=== PATIENT | female | born 1980 | race Caucasian/White ===

== ENCOUNTER 2016-06-20 13:05 | Outpatient (CLI) | payer MEDICAID ==
[~2016-06-20] VITALS: Ht 157.5 cm; Wt 86.9 kg
[~2016-06-20 13:05] MED LIST: ACET325T33 PO; NITR-58 PO
[2016-06-20 13:36] VITALS: Ht 157.5 cm; Wt 86.9 kg
[2016-06-20] MEDS ORDERED: PRENAT PO (13:37)
[2016-06-20 14:01] LABS: ADD SCAN DIFF NO
[2016-06-20 14:06] LABS: BASOPHILS % 0.3 % (0.0-2.0); EOSINOPHILS % 0.3 % (0.0-7.0); HEMATOCRIT 37.6 % (37.0-47.0); HEMOGLOBIN 12.9 g/dl (12.0-16.0); LYMPHOCYTES # 1.3 10^3/ul (0.8-2.9); LYMPHOCYTES % 17.5 % (15.0-51.0); MEAN CORPUSCULAR HEMOGLOBIN 31.8 pg (29.0-33.0); MEAN CORPUSCULAR HGB CONC 34.3 g/dl (32.0-37.0); MEAN CORPUSCULAR VOLUME 92.6 fl (82.0-101.0); MONOCYTE # 0.4 10^3/ul (0.3-0.9); MONOCYTES % 5.1 % (0.0-11.0); NEUTROPHIL # 5.7 10^3/ul (1.6-7.5); NEUTROPHILS % 76.3 % (39.0-77.0); PLATELET COUNT 262 10^3/UL (140-415); RED BLOOD COUNT 4.06 10^6/ul (4.20-5.40); RED CELL DISTRIBUTION WIDTH 13.2 % (11.5-14.5); WHITE BLOOD COUNT 7.5 10^3/ul (4.8-10.8)
[2016-06-20 14:08] LABS: ADD UMIC YES; URINE BILIRUBIN (Dip) NEGATIVE (NEGATIVE); URINE BLOOD (Dip) TRACE (NEGATIVE); URINE COLOR LT. YELLOW (YELLOW); URINE GLUCOSE (Dip) NEGATIVE (NEGATIVE); URINE KETONES (Dip) NEGATIVE (NEGATIVE); URINE LEUKOCYTE ESTERASE (Dip) TRACE (NEGATIVE); URINE NITRITE (Dip) NEGATIVE (NEGATIVE); URINE TOTAL PROTEIN (Dip) TRACE (NEGATIVE); URINE UROBILINOGEN (Dip) 0.2 E.U./dL (0.1-1.0)
[2016-06-20 14:18] LABS: INR 0.91; PARTIAL THROMBOPLASTIN TIME 24.7 Sec (25.0-35.0); PROTIME 12.3 Sec (12.2-14.2)
[2016-06-20 14:20] LABS: ALBUMIN 3.5 g/dl (3.3-4.9)
[2016-06-20 14:21] LABS: POTASSIUM 3.9 mmol/L (3.5-5.1)
[2016-06-20 14:23] LABS: ALBUMIN/GLOBULIN RATIO 0.97; CREATININE 0.48 mg/dl (0.44-1.00); TOTAL PROTEIN 7.1 g/dl (6.1-8.1)
[2016-06-20 14:24] LABS: CALCIUM 9.8 mg/dl (8.4-10.2); URIC ACID 4.5 mg/dl (3.1-7.9)
--- NOTE | 2016-06-20 14:33 | RADRPT ---
PROCEDURE: US biophysical profile. CLINICAL INDICATION: induced hypertension. TECHNIQUE: Multiple sonographic images of the uterus were obtained. The images were revi ewed on a PACS workstation. COMPARISON: No prior studies are available for comparison. FINDINGS: There is a single live intrauterine gestation. heart rate is 125 beats per minute. The position is cephalic. The placenta is anterior right grade II with no abruption or previa. The SEE is 9.7 cm. (Normal = 5-20 cm.) Breathing Movement: 2 Gross Body Movement: 2 Tone: 2 Qualitative Amniotic Fluid Volume: 2 TOTAL: 8 IMPRESSION: 1. The biophysical score is 8/8. RPTAT: QQ .Garett Zimmerman MD, MD Date Time Electronically viewed and signed by .Garett Zimmerman MD, on 06/20/2016 14:32 .R/
[2016-06-20 15:02] LABS: BACTERIA,URINE FEW; URINE RBCS 0-2 /HPF (0)
--- NOTE | 2016-06-20 15:46 | QN ---
Documentation Comment 38 y/o female admitted for Audu=ible decelerations in the clinic at 37.4 weeks on EFM , NSR; R BRR : 11/22 All labs and bps are stable ERI LUDWIG MD Jun 20, 2016 15:45
--- NOTE | 2016-06-20 15:48 | PD.PPDC ---
[employer] Discharge Instruction Provider Information Physician Information admitted for audible deceleration in the clinic Diagnosis Final Diagnosis: Normal and reactive FHTs Condition Patient Condition: Good Diet Diet: Resume Regular Diet Activity/Restrictions Activity: Normal Activity May Shower Restrictions: Nothing in the Vagina Follow-up Follow-up with Physician: 3, 4, Day/Days (in clinic) ERI LUDWIG MD Jun 20, 2016 15:48
== END 2016-06-20 16:15 | disposition home health service (06) ==
LOC: OBT 13:05 → L-D 13:10 → OBT 16:15
PROVIDERS: ATTEND Obstetrics & Gynecology
DX: O09.513 Supervision of elderly primigravida, third trimester (principal); Z3A.37 37 weeks gestation of pregnancy
CPT/HCPCS: 36415; 76818; 80053; 81001; 84560; 85025; 85384; 85610; 85730; Z7500; 81003; G0463

== ENCOUNTER 2016-06-27 12:57 | Inpatient (IN) | payer MEDICAID ==
[~2016-06-27] VITALS: Ht 162.6 cm; Wt 85.9 kg
[~2016-06-27 12:57] MED LIST changes: -ACET325T33 PO; -NITR-58 PO; +PRENAT PO
[2016-06-27] MEDS ORDERED: FOL8 PO (13:20)
[2016-06-27] MEDS ORDERED: FERR240T9 PO (13:21)
[2016-06-27] MEDS ORDERED: CALC600T11 PO (13:21)
[2016-06-27] MEDS ORDERED: FERR236T PO (13:21)
[2016-06-27 13:30] VITALS: BP 137/97; PULSE 99; RESP 18
--- NOTE | 2016-06-27 14:25 | RADRPT ---
PROCEDURE: US OB biophysical profile. CLINICAL INDICATION: Preeclampsia. Assess biophysical profile and amniotic fluid index. TECHNIQUE: Multiple sonographic images of the pelvis were obtained. The images were reviewed on a PACS workstation. COMPARISON: Pelvic OB sonogram 06/20/2016. FINDINGS: Cardiac activity is present with 133.9 beats per minute. There is a vertex presentation. The placenta is grade 2 left lateral. Amniotic fluid index: 9.64 cm Biophysical profile: movement 2/2 tone 2/2. breathing 2/2 SEE 2/2 Total 11/22 IMPRESSION: 1. Amniotic fluid index equals 9.64 cm. 2. Normal biophysical profile. RPTAT:AAJJ . Physician Benjamin Date Time Electronically viewed and signed by Esteban Matta Physician on 06/27/2016 14:25 /
[2016-06-27 14:37] LABS: ADD UMIC YES; URINE BILIRUBIN (Dip) NEGATIVE (NEGATIVE); URINE BLOOD (Dip) TRACE (NEGATIVE); URINE COLOR LT. YELLOW (YELLOW); URINE GLUCOSE (Dip) NEGATIVE (NEGATIVE); URINE KETONES (Dip) NEGATIVE (NEGATIVE); URINE LEUKOCYTE ESTERASE (Dip) TRACE (NEGATIVE); URINE NITRITE (Dip) NEGATIVE (NEGATIVE); URINE TOTAL PROTEIN (Dip) NEGATIVE (NEGATIVE); URINE UROBILINOGEN (Dip) 0.2 E.U./dL (0.1-1.0)
[2016-06-27 14:52] LABS: BACTERIA,URINE FEW; URINE RBCS 0-2 /HPF (0)
[2016-06-27 16:01] LABS: ADD SCAN DIFF NO
[2016-06-27 16:03] LABS: BASOPHILS % 0.3 % (0.0-2.0); EOSINOPHILS % 0.4 % (0.0-7.0); HEMATOCRIT 38.5 % (37.0-47.0); HEMOGLOBIN 13.2 g/dl (12.0-16.0); LYMPHOCYTES # 1.4 10^3/ul (0.8-2.9); LYMPHOCYTES % 19.3 % (15.0-51.0); MEAN CORPUSCULAR HEMOGLOBIN 32.3 pg (29.0-33.0); MEAN CORPUSCULAR HGB CONC 34.3 g/dl (32.0-37.0); MEAN CORPUSCULAR VOLUME 94.1 fl (82.0-101.0); MONOCYTE # 0.4 10^3/ul (0.3-0.9); MONOCYTES % 5.3 % (0.0-11.0); NEUTROPHIL # 5.5 10^3/ul (1.6-7.5); NEUTROPHILS % 74.4 % (39.0-77.0); PLATELET COUNT 250 10^3/UL (140-415); RED BLOOD COUNT 4.09 10^6/ul (4.20-5.40); RED CELL DISTRIBUTION WIDTH 13.5 % (11.5-14.5); WHITE BLOOD COUNT 7.4 10^3/ul (4.8-10.8)
[2016-06-27 16:20] LABS: INR 0.89; PT RATIO 0.9
[2016-06-27 16:21] LABS: ALBUMIN 3.5 g/dl (3.3-4.9); PARTIAL THROMBOPLASTIN TIME 22.4 Sec (25.0-35.0)
[2016-06-27 16:22] LABS: POTASSIUM 4.3 mmol/L (3.5-5.1)
[2016-06-27 16:24] LABS: BILIRUBIN,INDIRECT 0.1 mg/dl (0-1.1); BILIRUBIN,TOTAL 0.1 mg/dl (0.2-1.3); CREATININE 0.51 mg/dl (0.44-1.00)
[2016-06-27 16:25] LABS: ALBUMIN/GLOBULIN RATIO 1.02; CALCIUM 9.9 mg/dl (8.4-10.2); TOTAL PROTEIN 6.9 g/dl (6.1-8.1); URIC ACID 4.3 mg/dl (3.1-7.9)
[2016-06-27] MEDS ORDERED: LACTATED RINGER'S 1,000 ML IV PRN (19:03)
[2016-06-27] MEDS ORDERED: MISOPROSTOL 200 MCG TAB PR PRN (19:30)
[2016-06-27] MEDS ORDERED: MINERAL OIL LIGHT 10 ML VIAL TOP ONE (19:30)
[2016-06-27] MEDS ORDERED: METHYLERGONOVINE 0.2 MG INJ IM PRN (19:30)
[2016-06-27] MEDS ORDERED: OXYTOCIN 30 UNITS/LR 500 ML IV PRN (19:30)
[2016-06-27] MEDS ORDERED: AMPICILLIN 2 GM/NS (PMX) 100 ML IV ONE (19:30)
[2016-06-27] MEDS ORDERED: LIDOCAINE 1% (MPF) 30 ML INJ INJ PRN (19:30)
[2016-06-27] MEDS ORDERED: OXYTOCIN 30 UNITS/LR 500 ML IV SCH ×2 (19:30)
[2016-06-27] MEDS ORDERED: IBUPROFEN 600 MG TAB PO PRN (19:30)
[2016-06-27] MEDS ORDERED: CARBOPROST 250 MCG INJ IM PRN (19:30)
[2016-06-27] MEDS ORDERED: BUTORPHANOL 2 MG INJ IV PRN (19:30)
[2016-06-27] MEDS: LACTATED RINGER'S 1,000 ML IV SCH (19:40)
[2016-06-27] MEDS ORDERED: DINOPROSTONE 10 MG VAG SUPP VAG ONE (21:00)
[2016-06-27] MEDS: AMPICILLIN 1 GM/NS (PMX) 50 ML IV SCH (23:59)
[2016-06-28] MEDS: AMPICILLIN 1 GM/NS (PMX) 50 ML IV SCH ×5 (03:56→20:15)
[2016-06-28] MEDS: LACTATED RINGER'S 1,000 ML IV SCH ×3 (04:03→19:37)
[2016-06-28] MEDS ORDERED: MAGNESIUM SULFATE 4 GM/100 ML 100 ML IVPB ONE (04:30)
[2016-06-28] MEDS: MAGNESIUM SULFATE 20 GM/500 ML 500 ML IV SCH ×2 (05:45→15:42)
--- NOTE | 2016-06-28 16:34 | HP ---
Date/Time of Note Date/Time of Note DATE: 06/28/16 TIME: 16:30 OB - History Hx of Present Free Text/Dictation admitted for induction of the labor because of PIH Chief Complaint: No C/O H/A B/V or E/P Last Menstrual Period: September 08, 2015 Estimated Due Date: Jul 05, 2016 : 1 Para: 0 Care: Good Care Obstetrical Complications: Gestational Hypertension Medical Complications: None Past Family/Social History * Past Medical, Surgical, Family and Obstetric Histories reviewed from chart. Blood Type: O+ Rubella: immune RPR/VDRL: Negative GBS Status: Negative HBsAG: Negative OB Admission Exam Vital Signs Vital Signs Vital Signs Date Time Temp Pulse Resp B/P Pulse Ox O2 Delivery O2 Flow Rate FiO2 06/27/16 13:30 98.2 99 18 137/97 100 Room Air Physical Exam HEENT: WNL Heart: Rhythm Normal Lungs: Clear, Equal Abdomen: WNL Extremities: Normal Reflexes: Normal Cervical Dilatation: None Effacement: 0% Station: -3 Membranes: Intact Heart Rate: 130's Accelerations: Accelerations Present Decelerations: No Decelerations Varibility: Marked Contractions on Admission: None Last 72 hours Lab Results CBC & BMP 06/27/16 15:35 Liver Function Test 06/27/16 15:35 Alanine Aminotransferase (ALT/SGPT) 30 Albumin 3.5 Alkaline Phosphatase 236 H Aspartate Amino Transf (AST/SGOT) 34 Direct Bilirubin 0.00 Total Protein 6.9 Magnesium Level Test 06/28/16 12:43 Magnesium Level 5.0 H OB Assessment/Plan Reason for admission: induction of labor Other Assessment: PIH at term Induction Method: per Misoprostol Protocol ERI LUDWIG MD Jun 28, 2016 16:34
--- NOTE | 2016-06-28 19:36 | PN ---
Date/Time of Note Date/Time of Note DATE: 06/28/16 TIME: 19:35 OB Subjective Subjective Subjective No major complaints No C/O H/A B/V or epigastric pain OB Objective Objective Objective VSS P/E: unchanged OB Assessment/Plan Reason for admission: induction of labor Other Assessment: PIH at term Induction Method: per Misoprostol Protocol ERI LUDWIG MD Jun 28, 2016 19:36
[2016-06-28] MEDS ORDERED: DINOPROSTONE 10 MG VAG SUPP VAG ONE (22:30)
[2016-06-29] MEDS: AMPICILLIN 1 GM/NS (PMX) 50 ML IV SCH ×5 (00:01→16:01)
[2016-06-29] MEDS: LACTATED RINGER'S 1,000 ML IV SCH ×2 (02:52→16:01)
[2016-06-29] MEDS ORDERED: FENTAnyl 2MCG/ML-ROPIV 0.2% 100 ML ONE (10:02)
[2016-06-29] MEDS ORDERED: NALOXONE (0.4 MG/ML) INJ IV PRN (10:30)
[2016-06-29] MEDS ORDERED: ONDANSETRON 4 MG INJ IV PRN (10:30)
[2016-06-29] MEDS ORDERED: EPHEDrine SULFATE 50 MG/5 ML SYG IV PRN (10:30)
[2016-06-29] MEDS ORDERED: FENTAnyl 2MCG/ML-ROPIV 0.2% 100 ML BAG EPI SCH (10:30)
[2016-06-29] MEDS ORDERED: OXYTOCIN 30 UNITS/LR 500 ML IV SCH (12:30)
[2016-06-29] MEDS ORDERED: ACCUCHECK XX SCH (14:00)
[2016-06-29] MEDS ORDERED: MINERAL OIL LIGHT 10 ML VIAL TOP ONE (18:00)
--- NOTE | 2016-06-29 20:17 | LDN ---
Date/Time of Note Date/Time of Note DATE: 06/29/16 TIME: 20:12 Delivery Summary of a viable over intact perineum Placenta Delivered: Spontaneously, Intact & Complete Perineum intact?: No Perineal laceration: 1 Perineal laceration repair: 2 X vaginal lacerations and 1st degree perineal laceration was repaired with 2 0Vicryl and 2 0 Chromic Anesthesia type: Epidural Estimated blood loss: 400 Sponge & Needle done & correct: Yes All needle counts correct: Yes Any foreign bodies felt in the: No Problems: Infant Delivery Information Sex Infant Sex: female Apgars 1 Minute: 9 5 Minute: 9 Suctioning Nose & mouth suctioned at anil: Yes Delee suction performed: No Umbilical Cord Umbilical cord with: 3 Vessels Cord presentations: no nuchal cord Cord Blood was obtained: Yes Mother & Baby Disposition Disposition Mom & Baby to Maternity; Good: Yes (mother and baby were recovered in good condition ) Mom transferred to: Other (maternity ) Baby to NICU: No ERI LUDWIG MD Jun 29, 2016 20:17
[2016-06-29] MEDS ORDERED: MISOPROSTOL 200 MCG TAB PR PRN (21:00)
[2016-06-29] MEDS ORDERED: WITCH HAZEL/GLYCERIN PAD PR PRN (21:00)
[2016-06-29] MEDS ORDERED: DIBUCAINE 1% 30 GM OINT PR PRN (21:00)
[2016-06-29] MEDS: MAGNESIUM HYDROXIDE 30ML CUP PO SCH (21:00)
[2016-06-29] MEDS ORDERED: ACETAMINOPHEN/CODEINE #3 TAB PO PRN ×2 (21:00)
[2016-06-29] MEDS ORDERED: BENZOCAINE 20% 56 ML SPRAY TOP PRN (21:00)
[2016-06-29] MEDS ORDERED: OXYTOCIN 30 UNITS/LR 500 ML IV PRN (21:00)
[2016-06-29] MEDS ORDERED: METHYLERGONOVINE 0.2 MG INJ IM PRN (21:00)
[2016-06-29] MEDS ORDERED: ZOLPIDEM 5 MG TAB PO PRN (21:00)
[2016-06-29] MEDS: SENNA/DOCUSATE NA (8.6MG/50MG) TAB PO SCH (21:00)
[2016-06-29] MEDS ORDERED: LANOLIN 7 GM TUBE TOP PRN (21:00)
[2016-06-29] MEDS ORDERED: CARBOPROST 250 MCG INJ IM PRN (21:00)
[2016-06-29] MEDS: MAGNESIUM SULFATE 20 GM/500 ML 500 ML IV SCH (21:03)
[2016-06-29 22:35] VITALS: BP 131/88; PULSE 85; RESP 18
[2016-06-29 23:00] VITALS: BP 131/87; PULSE 86; RESP 19
[2016-06-29] MEDS: CEPHALEXIN 500 MG CAP PO SCH (23:54)
[2016-06-29] MEDS: IBUPROFEN 600 MG TAB PO SCH (23:55)
[2016-06-30] VITALS (20 sets, daily range): BP systolic 112–135; BP diastolic 66–84; PULSE 75–103; RESP 18–20
[2016-06-30] MEDS: LACTATED RINGER'S 1,000 ML IV* SCH ×3 (01:01→10:25)
[2016-06-30] MEDS: CEPHALEXIN 500 MG CAP PO SCH ×4 (05:42→23:49)
[2016-06-30] MEDS: IBUPROFEN 600 MG TAB PO SCH ×4 (05:42→23:49)
[2016-06-30 08:00] LABS: ADD SCAN DIFF NO
[2016-06-30 08:02] LABS: BASOPHILS % 0.3 % (0.0-2.0); EOSINOPHILS % 0.4 % (0.0-7.0); HEMATOCRIT 33.1 % (37.0-47.0); LYMPHOCYTES # 1.7 10^3/ul (0.8-2.9); LYMPHOCYTES % 15.2 % (15.0-51.0); MEAN CORPUSCULAR HEMOGLOBIN 31.5 pg (29.0-33.0); MEAN CORPUSCULAR HGB CONC 33.2 g/dl (32.0-37.0); MEAN CORPUSCULAR VOLUME 94.8 fl (82.0-101.0); MONOCYTE # 0.8 10^3/ul (0.3-0.9); MONOCYTES % 7.4 % (0.0-11.0); NEUTROPHIL # 8.3 10^3/ul (1.6-7.5); NEUTROPHILS % 76.3 % (39.0-77.0); PLATELET COUNT 225 10^3/UL (140-415); RED BLOOD COUNT 3.49 10^6/ul (4.20-5.40); RED CELL DISTRIBUTION WIDTH 13.7 % (11.5-14.5); WHITE BLOOD COUNT 10.9 10^3/ul (4.8-10.8)
[2016-06-30] MEDS: SENNA/DOCUSATE NA (8.6MG/50MG) TAB PO SCH ×2 (09:19→20:57)
[2016-06-30] MEDS: MAGNESIUM HYDROXIDE 30ML CUP PO SCH ×2 (09:19→20:57)
[2016-06-30] MEDS: MAGNESIUM SULFATE 20 GM/500 ML 500 ML IV SCH (14:33)
--- NOTE | 2016-06-30 18:28 | DS ---
Date/Time of Note Date/Time of Note DATE: 06/30/16 TIME: 18:27 Obstetrical Discharge Record Final Diagnosis Final Diagnosis: Term delivered Other Final Diagnosis S/P vaginal delivery Vaginal Delivery Obstetrical Delivery: Spontaneous, Laceration, Repaired Complications Preg induced Hypertension Augmentation: Yes Induction: Yes Condition on Discharge Physical Assessment Last Vitals: see nurses notes Voiding: Yes Bowel Movement: Yes Breast: Soft, non-tender, Filling Fundus: Firm Abdomen and Incision: soft BS + Episiotomy: N/A perineum : healing Calf Tenderness: No Patient Condition: Good ERI LUDWIG MD Jun 30, 2016 18:28
[2016-07-01 04:01] VITALS: BP 145/93; PULSE 86; RESP 18
[2016-07-01] MEDS: CEPHALEXIN 500 MG CAP PO SCH ×3 (05:20→18:09)
[2016-07-01] MEDS: IBUPROFEN 600 MG TAB PO SCH ×3 (05:21→18:09)
[2016-07-01 07:30] VITALS: BP 133/84; PULSE 73; RESP 20
[2016-07-01 08:18] LABS: ADD SCAN DIFF NO
[2016-07-01] MEDS: MAGNESIUM HYDROXIDE 30ML CUP PO SCH (08:21)
[2016-07-01] MEDS: SENNA/DOCUSATE NA (8.6MG/50MG) TAB PO SCH (08:21)
[2016-07-01 08:29] LABS: BASOPHILS % 0.3 % (0.0-2.0); EOSINOPHILS % 0.5 % (0.0-7.0); HEMATOCRIT 31.8 % (37.0-47.0); HEMOGLOBIN 10.4 g/dl (12.0-16.0); LYMPHOCYTES # 1.6 10^3/ul (0.8-2.9); LYMPHOCYTES % 18.9 % (15.0-51.0); MEAN CORPUSCULAR HEMOGLOBIN 31.3 pg (29.0-33.0); MEAN CORPUSCULAR HGB CONC 32.7 g/dl (32.0-37.0); MEAN CORPUSCULAR VOLUME 95.8 fl (82.0-101.0); MEAN PLATELET VOLUME 11.1 fl (7.4-10.4); MONOCYTE # 0.5 10^3/ul (0.3-0.9); MONOCYTES % 5.6 % (0.0-11.0); NEUTROPHIL # 6.5 10^3/ul (1.6-7.5); NEUTROPHILS % 74.4 % (39.0-77.0); PLATELET COUNT 210 10^3/UL (140-415); RED BLOOD COUNT 3.32 10^6/ul (4.20-5.40); RED CELL DISTRIBUTION WIDTH 14.1 % (11.5-14.5); WHITE BLOOD COUNT 8.7 10^3/ul (4.8-10.8)
[2016-07-01 08:31] LABS: ALBUMIN 2.8 g/dl (3.3-4.9)
[2016-07-01 08:34] LABS: ALBUMIN/GLOBULIN RATIO 0.9; BILIRUBIN,INDIRECT 0.1 mg/dl (0-1.1); BILIRUBIN,TOTAL 0.1 mg/dl (0.2-1.3); CALCIUM 8.7 mg/dl (8.4-10.2); CREATININE 0.58 mg/dl (0.44-1.00); TOTAL PROTEIN 5.9 g/dl (6.1-8.1)
[2016-07-01] MEDS ORDERED: DIPHTH/TET/ACEL PERTUSS (ADULT) 0.5 ML VIAL IM* ONE (09:00)
[2016-07-01] MEDS ORDERED: MEASLES,MUMPS,RUBELLA VACCINE INJ SC* ONE (09:00)
[2016-07-01] MEDS ORDERED: VARICELLA VACCINE LIVE/PF 1,350 UNIT/0.5 ML ML SC* ONE (09:00)
[2016-07-01 12:30] VITALS: BP 144/81; PULSE 69; RESP 20
--- NOTE | 2016-07-01 15:52 | PD.PPDC ---
[employer] Discharge Instruction Provider Information Physician Information 36 y/o female was admitted for induction of the because of PIH and had vaginal delivery Diagnosis Final Diagnosis: S/P vaginal delivery Condition Patient Condition: Good Diet Diet: Resume Regular Diet Activity/Restrictions Activity: Normal Activity May Shower Restrictions: Nothing in the Vagina Return to Work or School: August 15, 2016 Follow-up Follow-up with Physician: 4, Week/Weeks (in clinic ) Return to clinic for OB Instructions: Breast Tenderness Depression Blurried Vision Headache ERI LUDWIG MD Jul 01, 2016 15:52
[2016-07-01] MEDS ORDERED: IBUP-1542 PO (15:53)
[2016-07-01 16:00] VITALS: BP 123/79; PULSE 85; RESP 20
== END 2016-07-01 22:00 | disposition home or self-care (01) | DRG 775 ==
LOC: OBT 12:57 → L-D 12:58 → OBT 17:50 → L-D 17:50 → PP1 06-29 22:38
PROVIDERS: ADMIT Obstetrics & Gynecology; ATTEND Obstetrics & Gynecology
PROC: 10E0XZZ Delivery of Products of Conception, External Approach (ICD-10-PCS; principal; 2016-06-29)
PROC: 0HQ9XZZ Repair Perineum Skin, External Approach (ICD-10-PCS; 2016-06-29)
DX: O13.4 Gestational [pregnancy-induced] hypertension without significant proteinuria, complicating childbirth (principal); O70.0 First degree perineal laceration during delivery; Z3A.38 38 weeks gestation of pregnancy; Z37.0 Single live birth
CPT/HCPCS: 62319; 76818; 80053; 81001; 81003; 83735; 84560; 85025; 85384; 85610; 85730; 86592; 86900; 86901; 87340; 90715; 90716; G0463; J0290; J2590; J3010; J3475; J7120